=== PATIENT | male | born 1930 | race Caucasian/White ===

== ENCOUNTER 2018-12-06 15:07 | Inpatient (IN) ==
--- NOTE | 2018-12-06 15:49 | HISTORY AND PHYSICAL ---
HISTORY: This is an 87-year-old who presented to my office. The patient is well known to me who has noticed for most of today he has had rectal bleeding in the commode, and also off and on through the day. No real abdominal pain. He has had a little bit of cramping. No fever or chills. PAST MEDICAL HISTORY: 1. Benign prostatic hypertrophy with obstruction. 2. Hypertension. 3. Irritative voiding issues. PAST SURGICAL HISTORY: 1. Exploratory laparotomy for abdominal pain. 2. TURBT and TURP. 3. He has had a vasectomy. 4. [place] teeth operated on. MEDICATION: I think he uses Cialis. He is on Flomax 0.4 mg a day. Glucosamine chondroitin in the past. ALLERGIES: No known drug allergies. SOCIAL HISTORY: Rare alcohol. No tobacco. REVIEW OF SYSTEMS: No fever or chills.HEENT: No change in visual or hearing acuity. Respiratory: No increased work of breathing or dyspnea. Cardiovascular: No chest pain or tachy palpitations. Gastrointestinal and Genitourinary: No gross hematuria or dysuria. Musculoskeletal and Neurologic: No significant complaints. ENDOCRINOLOGIC/HEMOLOGIC: No significant history. PHYSICAL EXAMINATION: VITAL SIGNS: Blood pressure 120/60, pulse 74, respirations 18, weight is 155 pounds, and temperature 98.1 degrees. Pupils are equal and round. LUNGS: Clear in all lung bernard. CARDIOVASCULAR: Regular rhythm and rate without murmur or S3. ABDOMEN: Soft. SKIN: Warm and dry. RECTAL: Obvious rectal blood from the rectum. I did not do a digital exam in the office. Wait until he is in the hospital. ASSESSMENT AND PLAN: 1. Rectal bleeding. Suspect his prior diverticular bleed, but we will get him over to the hospital, and get GI involved. Follow his blood counts. 2. Benign prostatic hypertrophy. He has not had any trouble voiding. He is on Flomax. 3. Hypertension aware. 4. He is status post TURP. He has not had any voiding issues recently. cc: Sherwin Lopes MD
[2018-12-06] MEDS ORDERED: ZOFRAN IV PRN (16:57)
[2018-12-06] MEDS ORDERED: TYLENOL PO PRN (16:57)
[2018-12-06] MEDS: NS 1,000 ML IV SCH (18:04)
[2018-12-06 18:37] LABS: BASO# 0.03 X1000 (0.0-0.2); BASO% 0.4 % (0.0-0.8); EOS# 0.08 X1000 (0.0-0.7); EOS% 1.1 % (0.0-10.0); HEMATOCRIT 34.8 % (42.0-52.0); HEMOGLOBIN 12.2 g/dL (14.0-18.0); IMM GRAN# 0.05 X1000 (0.0-0.04); IMM GRAN% 0.7 % (0.0-0.5); LYMPH# 1.18 X1000 (1.2-3.4); LYMPH% 16.6 % (20.5-51.1); MCH 32.6 PG (27-31); MCHC 35.1 g/dL (33-37); MONO# 0.67 X1000 (0.11-0.59); MONO% 9.4 % (1.7-9.3); MPV 10.1 FL (7.4-10.4); NEUT% 71.8 % (42.2-75.2); PLT 208 X1000 (130-400); RBC 3.74 XMIL (4.7-6.1); RDW 12.5 % (11.5-14.5); WBC 7.11 X1000 (4.8-10.8)
[2018-12-06 18:44] LABS: INR 0.96; PROTIME 13.5 Seconds (11.0-16.0)
[2018-12-06 18:45] LABS: PTT 33.5 Seconds (22.3-41.8)
[2018-12-06 19:20] LABS: AGAP 11; ALB/GLOB RATIO 1.5; ALBUMIN 4.3 g/dL (3.5-5.0); ALKALINE PHOSPHATASE 102 U/L (32-122); BUN 20 mg/dL (8-22); CALCIUM 9.1 mg/dL (8.8-10.2); CHLORIDE 101 mmol/L (98-107); COSMO 281; ESTIMATED GFR > 60; GLUCOSE 105 mg/dL (70-104); GOT 20 U/L (10-34); GPT 14 U/L (10-44); MAGNESIUM 2.2 mg/dL (1.5-2.7); POTASSIUM 4.4 mmol/L (3.5-5.1); SODIUM 139 mmol/L (136-145); TCO2 27 mmol/L (25-35); TOTAL BILIRUBIN 0.49 mg/dL (0.20-1.00); TOTAL PROTEIN 7.1 g/dL (6.3-8.3)
[2018-12-06] MEDS: MELATONIN PO SCH (21:09)
[2018-12-06] MEDS: PRILOSEC PO SCH (21:09)
[2018-12-06 23:11] LABS: BASO# 0.02 X1000 (0.0-0.2); BASO% 0.2 % (0.0-0.8); EOS% 1.2 % (0.0-10.0); HEMATOCRIT 27.9 % (42.0-52.0); HEMOGLOBIN 9.5 g/dL (14.0-18.0); IMM GRAN# 0.02 X1000 (0.0-0.04); IMM GRAN% 0.2 % (0.0-0.5); LYMPH# 2.53 X1000 (1.2-3.4); LYMPH% 30.5 % (20.5-51.1); MCH 31.6 PG (27-31); MCHC 34.1 g/dL (33-37); MCV 92.7 FL (81-99); MONO# 0.75 X1000 (0.11-0.59); MPV 9.8 FL (7.4-10.4); NEUT# 4.87 X1000 (1.4-6.5); NEUT% 58.9 % (42.2-75.2); PLT 208 X1000 (130-400); RBC 3.01 XMIL (4.7-6.1); RDW 12.3 % (11.5-14.5); WBC 8.29 X1000 (4.8-10.8)
[2018-12-07] MEDS: NS 250 ML IV SCH ×3 (03:26→22:24)
[2018-12-07] MEDS: NS 1,000 ML IV SCH ×2 (06:29→22:23)
--- NOTE | 2018-12-07 07:11 | PROGRESS NOTE ---
DATE: 12/07/2018 SUBJECTIVE: Mr. Bae moved him to the unit last night. He got hypotensive and diaphoretic and his lab, originally hematocrit 34, hemoglobin is 12 and later hematocrit dropped to 27, hemoglobin 9.5. He received 2 units of packed red blood cells. OBJECTIVE: General: He is afebrile. He feels better. Feels like the bleeding has slowed down. Vital signs: Temp 98.2 degrees, pulse 56, respirations 19, blood pressure 123/57. HEENT: Pupils are equal. Neck: No distended neck veins. Lungs: Clear anterolateral. Cardiovascular: Regular rhythm and rate without murmur or S3. Abdomen: Soft. Urine output 2100 mL. PLAN: 1. Continue IV fluids. GI to see, Dr. Meredith. He is on Prilosec 40 mg p.o. b.i.d. I suspect this is a diverticular bleed, but he has not been on any blood thinner nor has he taken much in the way of nonsteroidal anti-inflammatories. Holding his blood pressure medicines. 2. History of hypertension. cc: Sherwin Lopes MD
[2018-12-07 07:16] LABS: BASO# 0.01 X1000 (0.0-0.2); BASO% 0.1 % (0.0-0.8); EOS# 0.02 X1000 (0.0-0.7); EOS% 0.3 % (0.0-10.0); HEMOGLOBIN 10.8 g/dL (14.0-18.0); IMM GRAN# 0.02 X1000 (0.0-0.04); IMM GRAN% 0.3 % (0.0-0.5); LYMPH# 1.05 X1000 (1.2-3.4); LYMPH% 15.4 % (20.5-51.1); MCH 31.6 PG (27-31); MCHC 34.8 g/dL (33-37); MCV 90.6 FL (81-99); MONO# 0.52 X1000 (0.11-0.59); MONO% 7.6 % (1.7-9.3); MPV 9.8 FL (7.4-10.4); NEUT# 5.21 X1000 (1.4-6.5); NEUT% 76.3 % (42.2-75.2); PLT 145 X1000 (130-400); RBC 3.42 XMIL (4.7-6.1); RDW 12.8 % (11.5-14.5); WBC 6.83 X1000 (4.8-10.8)
[2018-12-07] MEDS: PRILOSEC PO SCH ×2 (08:58→20:20)
--- NOTE | 2018-12-07 09:04 | EKG Report ---
Test Performed on : 12/06/2018 10:41:13 PM Test Reason : ICU. NO EKG ORDER FOR MUSE Blood Pressure : / mmHG Vent. Rate : 054 BPM Atrial Rate : 054 BPM P-R Int : 188 ms QRS Dur : 094 ms QT Int : 458 ms P-R-T Axes : 026 -01 015 degrees QTc Int : 434 ms Sinus bradycardia. Minimal voltage criteria for LVH, may be normal variant Borderline ECG When compared with ECG of 27-AUG-2014 20:34, premature atrial complexes. are no longer present Unconfirmed Result
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
[2018-12-07] MEDS ORDERED: GOLYTELY PO ONE ×2 (14:00→20:08)
[2018-12-07] MEDS: MELATONIN PO SCH (20:20)
[2018-12-08 06:16] LABS: HEMATOCRIT 32.7 % (42.0-52.0); HEMOGLOBIN 11.3 g/dL (14.0-18.0)
[2018-12-08] MEDS ORDERED: DIPRIVAN 1% ONE (07:47)
[2018-12-08] MEDS ORDERED: XYLOCAINE-MPF 2% ONE (07:47)
[2018-12-08] MEDS ORDERED: FENTANYL ONE (07:48)
[2018-12-08] MEDS: PRILOSEC PO SCH ×2 (10:00→20:13)
[2018-12-08] MEDS: NS 1,000 ML IV SCH (11:26)
--- NOTE | 2018-12-08 12:09 | OPERATIVE NOTE ---
PROCEDURE DATE: 12/08/2018 PRIMARY CARE DOCTOR: Sherwin Lopes MD TITLE OF PROCEDURE: Colonoscopy. PREOPERATIVE DIAGNOSES: 1. Hematochezia. 2. Syncope. 3. Anemia 4. Prior history of colon polyps. Last colonoscopy was 2003. POSTOPERATIVE DIAGNOSES: 1. Diverticulosis in the descending sigmoid colon of moderate degree. Likely the source of Patient's GI bleeding. 2. Internal hemorrhoids grade 2 on retroflexion. 3. Retained stool in the colon. 4. No evidence of any active bleeding, fresh or old blood found in the entire colonoscopy. ESTIMATED BLOOD LOSS: None. COMPLICATIONS: None. ANESTHESIA: Monitored anesthesia care by the anesthesiologist. SPECIMEN: None. DESCRIPTION OF PROCEDURE: After informed consent and the patient and family explained the risks, benefits, indications, and alternatives to the procedure, the patient was prepared for colonoscopy. The patient was brought to the OR. He was turned in a left lateral decubitus position. Rectal exam was performed, which revealed normal rectum. No masses felt. No blood on the examining finger. The colonoscope was introduced into the anal verge and was advanced all the way to the cecum. Cecum was identified by using landmarks like IC valve and appendiceal orifice. The bowel prep was fair. There was lots of stool throughout the colon, which was lavaged. There was evidence of diverticulosis in the descending sigmoid colon of moderate degree. There was no evidence of active bleeding or fresh or old blood in the entire colonoscopy. Retroflexion revealed internal hemorrhoids grade 2. There was no evidence of underlying colitis. I did not visualize any AVMs. The air and the scope were withdrawn. The patient tolerated the procedure well and will be monitored in the OR in stable condition. RECOMMENDATIONS: 1. The patient will be started on full liquid diet today and advance as tolerated. 2. Patient will avoid excessive corn, nuts, and seeds in diet. 3. Patient will be started on MiraLAX 17 g p.o. once daily. 4. The patient is on Metamucil 1 tablespoon p.o. 1 at bedtime. 5. We will start patient on Iron C b.i.d. and MVI QD for 3 months. The above plan was discussed with the patient and family and all questions were answered. Please call us with any further questions. cc: MD Sherwin Whitman MD [facility]
[2018-12-08] MEDS: MELATONIN PO SCH (20:12)
[2018-12-08] MEDS: ICAR-C PO SCH (20:13)
[2018-12-08] MEDS ORDERED: METAMUCIL POWDER PACKET PO SCH (21:00)
[2018-12-08 22:35] LABS: AGAP 6; BUN 11 mg/dL (8-22); CALCIUM 8.4 mg/dL (8.8-10.2); CHLORIDE 109 mmol/L (98-107); COSMO 282; CREATININE 0.8 mg/dL (0.7-1.2); ESTIMATED GFR > 60; GLUCOSE 118 mg/dL (70-104); POTASSIUM 3.6 mmol/L (3.5-5.1); SODIUM 141 mmol/L (136-145); TCO2 26 mmol/L (25-35)
--- NOTE | 2018-12-08 23:53 | ECHO REPORT ---
ORDER DATE: 12/08/2018 MEASUREMENTS: Septal thickness 1.3, posterior wall thickness 1.3, left ventricular internal diameter in diastole 4.3, left ventricular internal diameter in systole 2.5, aortic root 3.5, left atrium 4.5. SUMMARY: 1. Technically difficult study due to limited acoustic window quality. 2. Fair quality study. 3. Moderate aortic valve sclerosis demonstrated involving trileaflet aortic valve with mild reduction in aortic valve leaflet mobility. Peak gradient across the aortic valve is 37 mmHg with a mean gradient of 19 mmHg. Calculated aortic valve area by Doppler is 2.2 cm2, suggesting minimal aortic stenosis. There is moderate thickening with calcification of mitral valve leaflets with reduced mitral valve leaflet mobility. Peak gradient across the mitral valve is 16 mmHg with a mean gradient of 5.7 mmHg. Calculated mitral valve area by pressure halftime method is 2.2 cm2, suggesting mild mitral stenosis. There is very mild mitral regurgitation. The tricuspid and pulmonic valves are without evidence of structural abnormality, with mild tricuspid regurgitation. The estimated systolic PA pressure by Doppler is 45 mmHg, suggesting mild pulmonary hypertension. The aortic root is normal in size. 4. Normal left ventricular chamber size with mild concentric left ventricular hypertrophy is demonstrated. Estimated left ventricular ejection fraction appears to be at least 75%. The left ventricle appears somewhat hyperdynamic. No regional wall motion abnormalities are evident. The left atrium is mildly to moderately enlarged. The right atrium and right ventricle are normal size with normal right ventricular systolic function. 5. No pericardial effusion. The left atrium is mildly to moderately enlarged. The right atrium is mildly enlarged. The right ventricle is normal in size with grossly preserved right ventricular systolic function. 6. No pericardial effusion. 7. Appearance of inferior vena cava suggests elevated central venous pressure. CONCLUSIONS: 1. Moderate sclerotic changes of the aortic valve with minimal aortic stenosis and moderate sclerotic change of the aortic valve with minimal aortic stenosis. 2. Mild mitral stenosis with very mild mitral regurgitation. 3. Mild tricuspid regurgitation with mild pulmonary hypertension by Doppler. 4. Mild concentric left ventricular hypertrophy with estimated left ventricular ejection fraction at least 75%. 5. Mild to moderate left atrial enlargement and mild right atrial enlargement. cc: MD Sherwin Barrett MD
[2018-12-09] MEDS: NS 1,000 ML IV SCH ×2 (01:13→01:57)
[2018-12-09 07:29] VITALS: BP 145/63
[2018-12-09] MEDS: ICAR-C PO SCH (08:18)
[2018-12-09] MEDS: PRILOSEC PO SCH (08:18)
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
[2018-12-09] MEDS ORDERED: PNEUMOVAX 23 IM ONE (08:41)
[2018-12-09] MEDS ORDERED: MIRALAX PO SCH (09:00)
[2018-12-09] MEDS ORDERED: CENTRUM SILVER PO SCH (09:00)
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
== END 2018-12-09 09:17 | disposition home or self-care (01) | DRG 378 ==
LOC: DIRADM 15:07 → 3N 16:39 → ICU 12-07 02:07
PROVIDERS: ADMIT Emergency Medicine; ATTEND Emergency Medicine
CPT/HCPCS: 36430; 80048; 80053; 83735; 84443; 85014; 85018; 85025; 85610; 85730; 86850; 86900; 86901; 86920; 90732; 93005; 93306; A9270; J3010; J7030; J7050; P9016